=== PATIENT | male | born 1980 | race African-American/Black ===

== ENCOUNTER 2023-07-12 10:18 | Emergency (ER) | payer MEDICAID ==
[~2023-07-12] VITALS: Ht 175.3 cm; Wt 100.0 kg
[2023-07-12 10:21] VITALS: O2SAT 98
[2023-07-12] MEDS: LIDOCAINE HCL/PF 1% 10 MG/ML 5ML VIAL INFIL ONE (10:45)
[2023-07-12] MEDS ORDERED: TETANUS, DIPHTHERIA, PERTUSSIS VAC/PF 0.5ML (>10YR OLD) IM ONE (10:45)
[2023-07-12] MEDS: BACITRACIN ZINC OINT UDPKT TOP ONE (10:45)
[2023-07-12] MEDS: ACETAMINOPHEN 325MG TABLET PO ONE (12:39)
[2023-07-12] MEDS: TETANUS, DIPHTHERIA, PERTUSSIS VAC/PF 0.5ML (>10YR OLD) IM ONE (13:30)
[2023-07-12 14:33] VITALS: BP 124/84; PULSE 68; RESP 16; TEMP 97.7
== END 2023-07-12 14:33 | disposition home or self-care (01) ==
LOC: ER 10:18
DX: S01.01XA Laceration without foreign body of scalp, initial encounter (principal); Y08.89XA Assault by other specified means, initial encounter; Y93.89 Activity, other specified; Y92.89 Other specified places as the place of occurrence of the external cause; Y99.8 Other external cause status
CPT/HCPCS: 70450; 90715; 12005; 90471; 99285; J3490; Z7610